=== PATIENT | female | born 1955 | race Two or more races ===

== ENCOUNTER 2019-02-20 10:55 | Outpatient (CLI) | payer OTHER | END 2019-02-20 12:11 | disposition home or self-care (01) | LOC: LAB 10:55 | DX: N20.0 Calculus of kidney (principal) ==

== ENCOUNTER → 2019-02-20 | Outpatient (CLI) | payer OTHER | END | disposition home or self-care (01) | LOC: NUCLEAR 09:41 | DX: M81.0 Age-related osteoporosis without current pathological fracture (principal); Z12.31 Encounter for screening mammogram for malignant neoplasm of breast ==

== ENCOUNTER 2019-02-27 09:02 | Outpatient (CLI) | payer OTHER | END 2019-02-27 09:04 | disposition home or self-care (01) | LOC: MRI 09:02 → MAMO-SONO 10:15 | DX: G31.84 Mild cognitive impairment of uncertain or unknown etiology (principal); Z12.31 Encounter for screening mammogram for malignant neoplasm of breast; Z87.898 Personal history of other specified conditions | CPT/HCPCS: 70552; 76641; 77067; A9575 ==

== ENCOUNTER 2019-03-19 12:17 | Outpatient (CLI) | payer OTHER | END 2019-03-19 12:31 | disposition home or self-care (01) | LOC: SONOGRAMA 12:17 | DX: N60.11 Diffuse cystic mastopathy of right breast (principal); N60.12 Diffuse cystic mastopathy of left breast; N63.22 Unspecified lump in the left breast, upper inner quadrant ==

== ENCOUNTER 2021-02-16 10:41 | Outpatient (CLI) | payer OTHER | END 2021-02-16 12:28 | disposition home or self-care (01) | LOC: SONOGRAMA 10:41 | PROVIDERS: ATTEND Surgery | DX: N60.11 Diffuse cystic mastopathy of right breast (principal); N60.12 Diffuse cystic mastopathy of left breast; N64.59 Other signs and symptoms in breast ==

== ENCOUNTER 2021-03-04 13:20 | Outpatient (CLI) | payer OTHER | END 2021-03-04 13:22 | disposition home or self-care (01) | LOC: NUCLEAR 13:20 | PROVIDERS: ATTEND Obstetrics & Gynecology | DX: M81.0 Age-related osteoporosis without current pathological fracture (principal) ==

== ENCOUNTER 2021-03-04 14:24 | Outpatient (CLI) | payer OTHER | END 2021-03-04 14:52 | disposition home or self-care (01) | LOC: MAMO-SONO 14:24 | PROVIDERS: ATTEND Obstetrics & Gynecology | DX: R92.1 Mammographic calcification found on diagnostic imaging of breast (principal); Z12.31 Encounter for screening mammogram for malignant neoplasm of breast ==

== ENCOUNTER 2022-12-13 10:06 | Outpatient (CLI) | payer OTHER | END 2022-12-13 10:11 | disposition home or self-care (01) | LOC: MAMO-SONO 10:06 | PROVIDERS: ATTEND General Practice | DX: N60.11 Diffuse cystic mastopathy of right breast (principal); N60.12 Diffuse cystic mastopathy of left breast; Z12.31 Encounter for screening mammogram for malignant neoplasm of breast ==

== ENCOUNTER 2023-04-19 11:01 | Outpatient (CLI) | payer OTHER | END 2023-04-19 11:02 | disposition home or self-care (01) | LOC: NUCLEAR 11:01 | PROVIDERS: ATTEND General Practice | DX: M81.0 Age-related osteoporosis without current pathological fracture (principal) ==

== ENCOUNTER 2024-09-18 10:40 | Outpatient (CLI) | payer OTHER | END 2024-09-18 10:42 | disposition home or self-care (01) | LOC: MAMO-SONO 10:40 | DX: N64.89 Other specified disorders of breast (principal); Z12.31 Encounter for screening mammogram for malignant neoplasm of breast ==

== ENCOUNTER 2025-04-22 08:55 | Outpatient (CLI) | payer OTHER | END 2025-04-22 08:56 | disposition home or self-care (01) | LOC: NUCLEAR 08:55 | DX: M81.0 Age-related osteoporosis without current pathological fracture (principal) ==